=== PATIENT | female | born 1945 | race Caucasian/White ===

== ENCOUNTER → 2021-03-22 | Outpatient (CLI) | payer OTHER | LOC: M.RAD 03-21 09:00 | PROVIDERS: ATTEND Family Medicine | DX: M85.88 Other specified disorders of bone density and structure, other site (principal); Z87.39 Personal history of other diseases of the musculoskeletal system and connective tissue ==

== ENCOUNTER 2021-08-03 21:11 | Inpatient (IN) | payer OTHER ==
[~2021-08-03] VITALS: Ht 154.9 cm; Wt 68.5 kg
[2021-08-03] MEDS ORDERED: PROTONIX40 M2 PO (21:39)
[2021-08-03] MEDS ORDERED: SYNTHROID125 MC1 PO (21:39)
[2021-08-03] MEDS ORDERED: TOPROL XL25 MG PO (21:39)
[2021-08-03] MEDS ORDERED: PROZAC 10 MG CA10 MG PO (21:40)
[2021-08-03] MEDS ORDERED: ZITHROMAX250 MG (21:40)
[2021-08-03] MEDS ORDERED: CHILDREN'S ASPI81 M1 PO (21:40)
[2021-08-03 21:42] VITALS: BP 139/79
[2021-08-03 22:10] LABS: ABSOLUTE BASOPHILS 0.1 thou/uL (0.0-0.2); ABSOLUTE EOSINOPHILS 0.1 thou/uL (0.0-0.7); ABSOLUTE LYMPHOCYTES 2.2 thou/uL (0.8-5.3); ABSOLUTE NEUTROPHILS 5.9 thou/uL (1.6-8.1); BASOPHILS 0.9 %; EOSINOPHILS 1.2 %; HEMATOCRIT 43.6 % (37.0-47.0); HEMOGLOBIN 14.7 gm/dL (12.0-15.0); LYMPHOCYTES 23.4 %; MCH 30.7 pg (26.0-34.0); MCHC 33.8 g/dL (28.0-37.0); MCV 90.7 fL (80.0-100.0); MONOCYTES 10.3 %; MPV 8.6 fl. (7.2-11.1); NUCLEATED RBCS 0 /100WBC; PLATELET COUNT* 170 thou/uL (150-400); POLYS 64.2 %; RDW-CV 16.1 % (10.5-14.5); WBC 9.2 thou/uL (4.0-11.0)
[2021-08-03 22:14] LABS: CALCIUM 7.2 mg/dL (8.5-10.1); CREATININE 0.8 mg/dL (0.6-1.3)
[2021-08-03 22:18] LABS: URINE BILIRUBIN NEGATIVE (Negative); URINE BLOOD 1+ (Negative); URINE CLARITY CLEAR; URINE COLOR YELLOW; URINE GLUCOSE-RANDOM NEGATIVE (Negative); URINE KETONES NEGATIVE (Negative); URINE LEUKOCYTES-REFLEX NEGATIVE (Negative); URINE NITRITE-REFLEX NEGATIVE (Negative); URINE PROTEIN NEGATIVE (Negative); URINE SPECIFIC GRAVITY 1.025 (1.005-1.030); URINE UROBILINOGEN 0.2 E.U./dl (0.2-1.0)
[2021-08-03 22:19] LABS: ALBUMIN 3.4 g/dL (3.4-5.0); MAGNESIUM 1.9 mg/dL (1.8-2.4); TOTAL BILIRUBIN 0.3 mg/dL (<0.1-1.0); TOTAL PROTEIN 7.5 g/dL (6.4-8.2)
[2021-08-03 22:23] LABS: PROTIME 10.2 Seconds (9.20-11.50)
[2021-08-03 22:33] LABS: CASTS None Seen /LPF (None Seen); CRYSTALS None Seen /LPF (None Seen); MUCUS 4-6 Moderate strn/LPF (None Seen); SQUAMOUS 4-10 Moderate /LPF (0-3); TRANSITIONAL EPITHEL CELL 0-3 Few /LPF (None Seen); URINE RBC 3-10 Few /HPF (0-2); URINE WBC-REFLEX 0-5 Rare /HPF (0-5)
[2021-08-03 22:41] LABS: BE 1.2 mmol/L (-2 to +3); PCO2 35.5 mmHg (35.0-45.0); pH 7.459 (7.340-7.450)
[2021-08-04 04:00] VITALS: BP 127/62
[2021-08-04 08:00] VITALS: BP 122/65
--- NOTE | 2021-08-04 11:06 | EKG ---
[place] [address] ELECTROCARDIOGRAM REPORT Name: MADISONSANDRITA Room: [place] [address] ADM IN M.R.#: [id number] Admission: 08/04/21 Attend Phys: Roberto Martinez Discharge: Date of : 47 Date of Service: 08/03/212134 Report #: [id number] THIS REPORT FOR: //name// [facility] ED Test Date: 2021-08-03 Test Time: 21:35:15 Pat Name: SANDRITA MADISON Department: Room: [facility] Gender: F Barkeeper: : 1945 Requested By: Elsie Billings Order Number: [id number] MD: Alexander Garsia Measurements Intervals [place] Rate: 103 P: 66 ID: [id number] QRS: -7 QRSD: 73 T: 61 QT: 338 QTc: 443 Interpretive Statements Sinus tachycardia Left atrial enlargement No previous ECG available for comparison Electronically Signed On 08-04-2021 11:05:51 [employer]AIN[employer] SPECIALIST by Alexander Garsia [email or web address] <ELECTRONICALLY SIGNED> By: Alexander Garsia MD, [facility] 08/04/21 1105 34 Alexander Garsia MD, [facility] /EPI
[2021-08-04 12:00] VITALS: BP 122/71
[2021-08-04 16:00] VITALS: BP 120/72
[2021-08-04 17:32] LABS: INFLUENZA A ANTIGEN Negative (Negative); INFLUENZA B ANTIGEN Negative (Negative)
[2021-08-04 20:00] VITALS: BP 118/68
[2021-08-04 20:30] VITALS: BP 120/67
[2021-08-05] VITALS: BP 107/54
[2021-08-05 04:00] VITALS: BP 111/57
[2021-08-05 05:57] LABS: HEMATOCRIT 37.3 % (37.0-47.0); MCH 29.8 pg (26.0-34.0); MCV 90.4 fL (80.0-100.0); MPV 8.6 fl. (7.2-11.1); RBC 4.12 mil/uL (4.20-5.00); RDW-CV 15.9 % (10.5-14.5); WBC 11.8 thou/uL (4.0-11.0)
[2021-08-05 06:07] LABS: ALBUMIN 2.8 g/dL (3.4-5.0); CALCIUM 6.8 mg/dL (8.5-10.1); CREATININE 0.9 mg/dL (0.6-1.3); POTASSIUM 3.7 mmol/L (3.5-5.1); TOTAL BILIRUBIN 0.3 mg/dL (<0.1-1.0); TOTAL PROTEIN 6.3 g/dL (6.4-8.2)
[2021-08-05 06:10] LABS: HEMOGLOBIN 12.3 gm/dL (12.0-15.0)
[2021-08-05 08:00] VITALS: BP 115/61
[2021-08-05 13:05] VITALS: BP 121/57
[2021-08-05 16:30] VITALS: BP 104/55
[2021-08-05 20:00] VITALS: BP 120/62
[2021-08-06] VITALS: BP 131/65
[2021-08-06 02:06] LABS: GLYCOHEMOGLOBIN (HGB A1C) 6.7 % (4.8-5.6)
[2021-08-06 04:00] VITALS: BP 126/58
[2021-08-06 05:53] LABS: HEMATOCRIT 37.9 % (37.0-47.0); HEMOGLOBIN 12.4 gm/dL (12.0-15.0); MCH 29.7 pg (26.0-34.0); MCHC 32.6 g/dL (28.0-37.0); MCV 90.9 fL (80.0-100.0); MPV 8.6 fl. (7.2-11.1); RBC 4.17 mil/uL (4.20-5.00); RDW-CV 15.9 % (10.5-14.5); WBC 15.4 thou/uL (4.0-11.0)
[2021-08-06 06:07] LABS: ALBUMIN 2.8 g/dL (3.4-5.0); CALCIUM 6.7 mg/dL (8.5-10.1); CREATININE 0.8 mg/dL (0.6-1.3); POTASSIUM 4.3 mmol/L (3.5-5.1); TOTAL BILIRUBIN 0.2 mg/dL (<0.1-1.0); TOTAL PROTEIN 6.3 g/dL (6.4-8.2)
[2021-08-06 08:00] VITALS: BP 145/69
[2021-08-06 11:05] VITALS: BP 134/62; BP 92/56
[2021-08-06 15:30] VITALS: BP 128/66
[2021-08-06 20:00] VITALS: BP 140/79
[2021-08-07] VITALS: BP 144/77
[2021-08-07 04:00] VITALS: BP 135/65
[2021-08-07 08:00] VITALS: BP 139/55
[2021-08-07 12:00] VITALS: BP 117/66
[2021-08-07 16:31] VITALS: BP 139/62
[2021-08-07 20:00] VITALS: BP 145/70
[2021-08-08] VITALS: BP 142/71
[2021-08-08 04:00] VITALS: BP 156/81
[2021-08-08 04:59] LABS: HEMATOCRIT 36.2 % (37.0-47.0); HEMOGLOBIN 12.3 gm/dL (12.0-15.0); MCH 30.6 pg (26.0-34.0); MPV 8.6 fl. (7.2-11.1); RBC 4.02 mil/uL (4.20-5.00); RDW-CV 15.6 % (10.5-14.5); WBC 8.5 thou/uL (4.0-11.0)
[2021-08-08 05:12] LABS: ALBUMIN 2.8 g/dL (3.4-5.0); CALCIUM 6.9 mg/dL (8.5-10.1); CREATININE 0.7 mg/dL (0.6-1.3); TOTAL BILIRUBIN 0.4 mg/dL (<0.1-1.0); TOTAL PROTEIN 6.3 g/dL (6.4-8.2)
[2021-08-08 08:15] VITALS: BP 173/73
[2021-08-08] MEDS ORDERED: DOXYCYCLINE 10100 MG PO (10:31)
[2021-08-08] MEDS ORDERED: METFORMIN HCL500 MG PO (10:31)
[2021-08-08] MEDS ORDERED: IPRAT-ALBUT 0.5-3 ML INH (10:31)
[2021-08-08] MEDS ORDERED: CEFDINIR300 MG PO (10:31)
[2021-08-08] MEDS ORDERED: PREDNISONE 10 M10 M1 PO (10:31)
[2021-08-08 11:30] VITALS: BP 117/69
[2021-08-08 16:22] VITALS: BP 117/69
== END 2021-08-08 16:35 | disposition home or self-care (01) | DRG 177 ==
LOC: M.ERS 21:11 → M.TBA-ER 08-04 01:57 → M.ORTHSURG 08-04 01:57 → M.TBA-ER 08-04 06:36 → M.ORTHSURG 08-04 19:54
PROVIDERS: Internal Medicine; Personal Emergency Response Attendant; ADMIT Internal Medicine; ATTEND Internal Medicine
DX: J15.6 Pneumonia due to other Gram-negative bacteria (principal); J96.01 Acute respiratory failure with hypoxia; R65.11 Systemic inflammatory response syndrome (SIRS) of non-infectious origin with acute organ dysfunction; Z20.822 Contact with and (suspected) exposure to COVID-19; E03.9 Hypothyroidism, unspecified; K21.9 Gastro-esophageal reflux disease without esophagitis; F17.210 Nicotine dependence, cigarettes, uncomplicated; E83.51 Hypocalcemia; J12.2 Parainfluenza virus pneumonia; Z71.6 Tobacco abuse counseling; Z28.21 Immunization not carried out because of patient refusal